=== PATIENT | male | born 1960 | race Caucasian/White ===

== ENCOUNTER 2016-07-19 12:43 | Day surgery (SDC) | payer MEDICARE ==
[~2016-07-19] VITALS: Ht 180.3 cm; Wt 113.2 kg
[2016-07-19] MEDS ORDERED: NORCO 7.5/325 T1 TA1 PO (13:11)
[2016-07-19] MEDS ORDERED: ROBAXIN-750750 MG PO (13:11)
[2016-07-19] MEDS ORDERED: ISOSORBIDE MONO60 M1 PO (13:12)
[2016-07-19] MEDS ORDERED: PLAVIX75 MG PO (13:13)
[2016-07-19] MEDS ORDERED: ZOCOR40 MG PO (13:13)
[2016-07-19] MEDS ORDERED: SYNTHROID25 MCG PO (13:13)
[2016-07-19] MEDS ORDERED: TOPROL XL50 MG PO (13:15)
[2016-07-19] MEDS ORDERED: NITROSTAT0.4 MG SL (13:16)
[2016-07-19] MEDS ORDERED: BAYER CHEWABLE81 MG PO (13:17)
[2016-07-19] MEDS ORDERED: FUROSEMIDE20 MG PO (13:17)
[2016-07-19 13:35] VITALS: BP 115/75; Ht 180.3 cm; Wt 113.2 kg
[2016-07-19 14:08] LABS: ANION GAP 13.9 mmol/L (8-16); CALCIUM 8.7 mg/dL (8.5-10.1); CARBON DIOXIDE 27.9 mmol/L (21.0-32.0); CREATININE - SERUM 1.3 mg/dL (0.6-1.3); POTASSIUM - SERUM 3.8 mmol/L (3.5-5.1)
--- NOTE | 2016-07-19 15:55 | NUR ---
1540 BACK FROM COLONOSCOPY SOME SLEEPY AND RESP EVEN AND NONLABORED. ENCOURAGED TO PASS AIR. FAMILY PRESENT AND C/L IN REACH.
--- NOTE | 2016-07-19 18:59 | NUR ---
1640 V/S TAKEN MARGARET DIET AND VOIDED. IV DCD CATHETER INTACT. DISCHARGE INSTRUCTIONS GONE OVER AND VERBALLY UNDERSTANDS.
--- NOTE | 2016-07-19 18:59 | NUR ---
1610 DR. MARTINEZ ROUNDED.
--- NOTE | 2016-07-19 19:00 | NUR ---
1556 TO HOME VIA W/C WITH FAMILY.
--- NOTE | 2016-08-30 11:24 | OP ---
PATIENT NAME: JACOB REYES MEDICAL RECORD: [id number] :62 LOCATION:D.OPS ADMISSION DATE: SURGEON: SUNITHA RHODES MD DATE OF OPERATION: 07/19/2016 PROCEDURE: Colonoscopy with polypectomy. CARDIOLOGY CONSULTANTS: Sunitha Rhodes MD SCOPE: Olympus video colonoscope. MEDICATIONS: Per TIVA anesthesia. INDICATION FOR TIVA: The patient with a history of throat cancer status post radiation and chemotherapy, now with what was felt to be a difficult intubation if necessary for airway protection. Therefore, the patient has been asked to present to a hospital for this procedure. INDICATION FOR THE PROCEDURE: Screening colonoscopy, recent PET scan did not show any hypermetabolic lesions. The patient; however, has a history of a recent bout of diverticulitis, which has resolved. FINDINGS: Informed consent was given. The patient was made comfortable with the above medications. Of note, he has received 400 mg of propofol for this procedure, O2 4 liters. After reaching an adequate level of sedation by slow IV push, the patient was placed on his left side. The rectal exam revealed good sphincter tone, no fissures or fistulas were appreciated. No external skin tags were seen. The colonoscope was advanced to the cecum where the ileocecal valve and appendiceal orifice were identified and felt to be normal. The small bowel was intubated. Tissue was also normal in this area. On withdrawal of the scope, mucosa was carefully inspected. The patient had multiple polyps throughout his colon. The first was in the ascending colon at 80 cm, approximately 1 cm in size, removed with hot biopsy forceps technique. Multiple other polyps ranging in size from 0.5 cm to 1 cm in size were also removed at 75 cm, again in the distal ascending colon, 60 cm in the transverse colon, 40 cm times 4 in the descending colon, 1 polyp at 20 cm in the sigmoid colon, multiple rectal polyps, all removed with hot biopsy forcep technique. Additionally, this gentleman had very mild left-sided diverticulosis without diverticulitis and on retroflexion and final withdrawal of the scope, internal hemorrhoids were appreciated, grade I. IMPRESSION: 1. Multiple polyps were removed as described in the text, all removed with hot biopsy forceps technique. 2. Very mild left-sided diverticulosis without diverticulitis. 3. Internal hemorrhoids. PLAN: 1. No anti-inflammatory drugs times 14 days. 2. We will ask this gentleman to call his primary care physician to see if he can hold his Plavix and aspirin for 5 more days. 3. High fiber diet. 4. Return to clinic on a p.r.n. basis. 5. None of the polyps looked to be malignant. I believe they are all benign in nature, although multiple. OPERATIVE REPORT [id number] JACOB REYES TRANSINT:[id number] Voice Confirmation ID: [id number] DOCUMENT ID: [id number] CC: NIMISHA Odell BRENDA MD at 1124 CC: ELICEO PARRA APN and SINDHU EL MD [id number] DICTATION DATE: 07/19/16 1533 SYSTEM DESIGNER: 07/19/16 1551 [facility] 07/19/16 [id number] [place] [address]
== END 2016-07-19 16:50 | disposition home or self-care (01) ==
LOC: D.OPS 12:43
PROVIDERS: Anesthesiology
DX: Z12.11 Encounter for screening for malignant neoplasm of colon (principal); D12.4 Benign neoplasm of descending colon; K63.5 Polyp of colon; K62.1 Rectal polyp; K57.30 Diverticulosis of large intestine without perforation or abscess without bleeding; K64.8 Other hemorrhoids; Z85.21 Personal history of malignant neoplasm of larynx; Z92.21 Personal history of antineoplastic chemotherapy; Z92.3 Personal history of irradiation

== ENCOUNTER 2020-02-13 10:20 | Day surgery (SDC) | payer MEDICARE ==
[~2020-02-13] VITALS: Ht 180.3 cm; Wt 107.3 kg
[2020-02-13 10:08] LABS: HEMATOCRIT 49.5 % (42.0-54.0); HEMOGLOBIN 16.6 g/dL (13.5-17.5); MCH 31.9 pg (26.0-34.0); MCHC 33.5 g/dL (31.0-37.0); MCV 95.2 fL (80.0-100.0); MEAN PLATELET VOLUME 8.9 fL (7.4-10.4); RBC 5.2 10x6/uL (4.20-6.10); RDW 13.4 % (11.5-14.5); WBC 6.6 10x3/uL (4.8-10.8)
[~2020-02-13 10:20] MED LIST: BAYER CHEWABLE81 MG PO; FUROSEMIDE20 MG PO; HYDROCODONE-IB1 EAC3 PO; ISOSORBIDE MONO60 M1 PO; NITROSTAT0.4 MG SL; NORCO 7.5/325 T1 TA1 PO; PLAVIX75 MG PO; ROBAXIN-750750 MG PO; SYNTHROID25 MCG PO; TOPROL XL50 MG PO; ZOCOR40 MG PO
[2020-02-13 10:21] LABS: APTT 32.9 SECONDS (22.8-39.4); INR 1.03 (0.85-1.17); PROTIME 13.4 SECONDS (11.6-15.0)
[2020-02-13 11:07] VITALS: BP 124/84; Ht 180.3 cm; Wt 107.3 kg
--- NOTE | 2020-02-16 07:06 | OP ---
PATIENT NAME: JACOB REYES MEDICAL RECORD: [id number] :62 LOCATION:D.OPS ADMISSION DATE: SURGEON: ANU RITCHIE DO DATE OF OPERATION: 02/13/2020 PROCEDURE: Colonoscopy with polypectomy. INDICATIONS FOR PROCEDURE: History of colon polyps, diverticular disease, screening for colorectal cancer. SCOPE: Olympus video pediatric colonoscope. MEDICATIONS: Propofol 400 mg IV, ketamine 50 mg IV, Versed 2 IV all per anesthesia. WITHDRAWAL TIME: 24 minutes. ESTIMATED BLOOD LOSS: Minimal. COMPLICATIONS: None. FINDINGS: Informed consent was given. The patient was made comfortable with the above medication. After reaching an adequate level of sedation by slow IV push, the patient was placed on his left side. A digital rectal examination was performed and was normal. The endoscope was then advanced under direct visualization through the rectum to the cecum, confirmed by the presence of the appendiceal orifice and ileocecal valve. The endoscope was slowly withdrawn and mucosa was carefully examined. The prep quality was inadequate in the cecum and ascending colon. There were multiple polyps visualized on today's examination. Two were located in the ascending colon. They were benign appearing and sessile and ranged in size from 3-6 mm in diameter. They were both removed using a hot snare. In the transverse colon, there was a single benign-appearing sessile polyp, which measured approximately 5 mm in diameter. It was removed using a hot snare. In the descending colon, there were two separate benign-appearing sessile polyps, which ranged in size from 5 mm-9 mm in diameter. They were both removed using hot snare. In the sigmoid colon, there was a single benign-appearing sessile polyp, which measured approximately 4 mm in diameter. It was removed using hot snare. There was evidence of mild diverticulosis involving the sigmoid colon. Retroflexion was performed in the rectum with visualization of grade I internal hemorrhoids without bleeding. The endoscope was withdrawn from the patient. The patient tolerated the procedure well and there were no complications. IMPRESSION: 1. Multiple polyps as described above, removed using hot snare. 2. Grade I internal hemorrhoids without bleeding. 3. Mild diverticulosis of the sigmoid colon. PLAN AND RECOMMENDATIONS: 1. Discharge home when recovery parameters are met. 2. Follow up biopsy specimen results. 3. High fiber diet. 4. Continue current medications. 5. Recall colonoscopy within 1 year based on a number of polyps removed today and the fact that the prep was inadequate. OPERATIVE REPORT [id number] JACOB REYES TRANSINT:[id number] Voice Confirmation ID: [id number] DOCUMENT ID: [id number] ANU RITCHIE DO at 0706 CC: [id number] DICTATION DATE: 02/13/20 1250 GUEST SERVICES REPRESENTATIVE: 02/13/202049 [facility] 02/13/20 [id number] [place] [address]
== END 2020-02-13 13:50 | disposition home or self-care (01) ==
LOC: D.OPS 10:20
PROVIDERS: Anesthesiology; ATTEND Internal Medicine Gastroenterology
DX: Z86.010 Personal history of colon polyps (principal); K57.90 Diverticulosis of intestine, part unspecified, without perforation or abscess without bleeding; Z12.11 Encounter for screening for malignant neoplasm of colon; K63.5 Polyp of colon

== ENCOUNTER 2020-09-27 12:41 | Day surgery (SDC) | payer MEDICARE ==
[~2020-09-27] VITALS: Ht 180.3 cm; Wt 99.5 kg
--- NOTE | ~2020-09-27 | OP ---
PATIENT NAME: JACOB REYES MEDICAL RECORD: [id number] :62 LOCATION:D.OPS ADMISSION DATE: SURGEON: ANU RITCHIE DO DATE OF OPERATION: 09/27/2020 PROCEDURE: Colonoscopy with polypectomy. INDICATION FOR PROCEDURE: History of colon polyps. SCOPE: Olympus video pediatric colonoscope. MEDICATIONS: Propofol 350 mg IV per anesthesia. WITHDRAWAL TIME: 16 minutes. ESTIMATED BLOOD LOSS: Minimal. COMPLICATIONS: None. FINDINGS: Informed consent was given. The patient was made comfortable with the above medication. After reaching an adequate level of sedation by slow IV push, the patient was placed on his left side. A digital rectal examination was performed and it was normal. The endoscope was then advanced under direct visualization through the rectum to the cecum, confirmed by the presence of the appendiceal orifice and ileocecal valve. The endoscope was slowly withdrawn, and the mucosa was carefully examined. The prep quality was poor in the cecum and ascending colon, but good otherwise. There were four benign-appearing sessile polyps located in the sigmoid colon, which ranged in size from 4 to 8 mm in diameter. They were all removed using hot snare. There was evidence of mild diverticulosis and grade I internal hemorrhoids without bleeding upon retroflexion. The endoscope was withdrawn from the patient. The patient tolerated the procedure well and there were no complications. IMPRESSION: 1. Four sigmoid polyps as described above, removed using a hot snare. 2. Grade I internal hemorrhoids without bleeding. 3. Mild diverticulosis. PLAN AND RECOMMENDATIONS: 1. Discharge home when recovery parameters are met. 2. Follow up biopsy specimen results. 3. High fiber diet. 4. Continue current medications. 5. Recall colonoscopy in 3 years. TRANSINT:[id number] Voice Confirmation ID: [id number] DOCUMENT ID: [id number] OPERATIVE REPORT [id number] JACOB REYES ANU RITCHIE DO CC: [id number] DICTATION DATE: 09/27/20 143 LOADING MACHINE TOOL SETTER: 09/27/[address] [facility] [place] [place] 09/27/20 [facility] [address] [place] [address]
[2020-09-27 13:16] LABS: BASOPHILS 0.6 % (0-2); EOSINOPHILS 2.7 % (0-7); HEMATOCRIT 50.6 % (42.0-54.0); IMMATURE GRANULOCYTES 0.2 % (0-5); LYMPHOCYTE ABS# 1.94 10x3/uL (1.32-3.57); LYMPHOCYTES 22.8 % (15-50); MCH 31.8 pg (26.0-34.0); MCHC 33.6 g/dL (31.0-37.0); MCV 94.8 fL (80.0-100.0); MEAN PLATELET VOLUME 8.9 fL (7.4-10.4); MONOCYTES 10.6 % (2-11); NEUTROPHIL ABS# 5.38 10x3/uL (1.78-5.38); NEUTROPHILS 63.1 % (40-80); PLATELET COUNT 187 10x3/uL (130-400); RBC 5.34 10x6/uL (4.20-6.10); RDW 13.6 % (11.5-14.5); WBC 8.5 10x3/uL (4.8-10.8)
[2020-09-27 13:31] VITALS: BP 131/90; Ht 180.3 cm; Wt 99.5 kg
--- NOTE | 2020-09-27 13:46 | NUR ---
IV STARTED WITH 22G ANGIOCATH IN RIGHT AC
[2020-09-27 13:49] LABS: BILIRUBIN - TOTAL 0.62 mg/dL (0.2-1.3); CALCIUM 8.9 mg/dL (8.5-10.1); CARBON DIOXIDE 26.9 mmol/L (21.0-32.0); CREATININE - SERUM 1.1 mg/dL (0.6-1.3); POTASSIUM - SERUM 3.9 mmol/L (3.5-5.1); PROTEIN - SERUM 7.2 g/dL (6.4-8.2)
== END 2020-09-27 15:40 | disposition home or self-care (01) ==
LOC: D.OPS 12:41
PROVIDERS: ATTEND Internal Medicine Gastroenterology
DX: Z86.010 Personal history of colon polyps (principal); K63.5 Polyp of colon; K64.0 First degree hemorrhoids; K57.30 Diverticulosis of large intestine without perforation or abscess without bleeding; Z12.11 Encounter for screening for malignant neoplasm of colon